=== PATIENT | female | born 1955 | race Caucasian/White ===

== ENCOUNTER 2019-12-21 18:48 | Emergency (ER) | payer MEDICARE, SELFPAY ==
[2019-12-21 18:51] VITALS: BP 143/73; PULSE 89; RESP 18; TEMP 37; O2SAT 96
--- NOTE | 2019-12-21 19:03 | DI.CT.S_ITS ---
PROCEDURE: CT HEAD/BRAIN WO CON INDICATIONS: fall, head injury on coumadin TECHNIQUE: Noncontrast 4.5 mm thick angled axial sections acquired from the foramen magnum to the vertex, with coronal and sagittal reformats. For radiation dose reduction, the following was used: automated exposure control, adjustment of mA and/or kV according to patient size. COMPARISON: [facility], CT, CT CERVICAL SPINE WO CON, 12/21/2019, 19:07. FINDINGS: Image quality: Excellent. CSF spaces: Basal cisterns are patent. No extra-axial fluid collections. The ventricles are symmetric in size and shape. Brain: No intracranial bleeds or masses. There is cerebral volume loss for age, with resultant ventricular and sulcal prominence. There are periventricular and deep white matter chronic small vessel ischemic changes. There is intracranial internal carotid artery atherosclerosis. Skull and face: Calvarium and visualized facial bones appear intact, without suspicious lesions. Sinuses: Visualized sinuses and mastoids are clear. IMPRESSION: 1. No acute intracranial findings. 2. Findings likely associated with chronic microvascular ischemic changes. Dictated by: Sunita Abdi M.D. on 12/21/2019 at 19:44 Approved by: Sunita Abdi M.D. on 12/21/2019 at 19:45
--- NOTE | 2019-12-21 19:03 | DI.CT.S_ITS ---
PROCEDURE: CT CERVICAL SPINE WO CON INDICATIONS: fall, head injury on coumadin TECHNIQUE: Noncontrast 3 mm thick sections acquired from the skull base to the T4 level. Sagittal and coronal reformats were then constructed. For radiation dose reduction, the following was used: automated exposure control, adjustment of mA and/or kV according to patient size. COMPARISON: None. FINDINGS: Image quality: Excellent. Bones: No fractures or dislocations. Severe degenerative changes are present within the cervical and upper thoracic spine including intervertebral disc space narrowing, subchondral cystic changes, and osteophytosis. Visualized superior ribs are intact. Soft tissues: Prevertebral soft tissues are normal in thickness. No paravertebral hematomas. No apical pneumothoraces. IMPRESSION: No acute cervical spine injury. Moderate to severe degenerative change. Dictated by: Sunita Abdi M.D. on 12/21/2019 at 19:42 Approved by: Sunita Abdi M.D. on 12/21/2019 at 19:44
--- NOTE | 2019-12-21 19:11 | DI.RAD.S_ITS ---
PROCEDURE: XR WRIST LT MIN 3V INDICATIONS: fall TECHNIQUE: 3 views of the wrist were acquired. COMPARISON: None. FINDINGS: Bones: There is a questionable minimally displaced fracture of the radial styloid. No other fracture or dislocation visualized. Soft tissues: No suspicious soft tissue calcifications. IMPRESSION: Questionable minimally displaced radial styloid fracture. Dictated by: Sunita Abdi M.D. on 12/21/2019 at 19:40 Approved by: Sunita Abdi M.D. on 12/21/2019 at 19:42
[2019-12-21 19:55] VITALS: BP 142/78; PULSE 81; RESP 16; O2SAT 97
[2019-12-21 20:09] LABS: Add Manual Diff / Slide Review NO; Basophils Absolute Auto 0 /uL (0-100); Basophils Percent Auto 0.2 % (0-2); Eosinophils Absolute Auto 200 /uL (0-450); Eosinophils Percent Auto 2.2 % (2-4); Hematocrit 42.4 % (36-46); Hemoglobin 14.1 g/dL (12.0-16.0); Lymphocytes Absolute Auto 3500 /uL (1100-4500); Lymphocytes Percent Auto 40.1 % (25-40); Mean Corpuscular HGB Conc 33.4 % (30-36); Mean Corpuscular Hemoglobin 30.3 PG (26-34); Mean Corpuscular Volume 90.7 fL (80-100); Monocytes Absolute Auto 700 /uL (0-900); Monocytes Percent Auto 7.8 % (3-14); Neutrophils Absolute Auto 4300 /uL (1500-7000); Neutrophils Percent Auto 49.7 % (50-75); Platelet Count 290 X10^3/uL (150-400); Red Blood Cell Count 4.68 X10^6/uL (4.0-5.2); Red Cell Distribution Width 12.7 % (11.6-14.8); White Blood Cell Count 8.6 X10^3/uL (4.5-11.0)
--- NOTE | 2019-12-21 20:09 | ED_ITS ---
HPI - General Adult General Chief complaint: Trauma Stated complaint: FALL LEFT WRIST INJURY Time Seen by Provider: 12/21/19 19:10 Source: patient Mode of arrival: Ambulatory Limitations: no limitations History of Present Illness HPI narrative: 64-year-old female on Coumadin for atrial fibrillation here for evaluations of injuries that she sustained when she fell yesterday after tripping over a crack in the sidewalk. She did fall forward. She did hit her head. There was no loss of consciousness. Has a bruise above her left eye. Has pain in her left wrist. Also is complaining of a headache. No other inju viry reported from the event. She has not tried anything for symptoms prior to arrival. Modified trauma called secondary to fall on anticoagulation with hitting her head. Related Data Allergies Allergy/AdvReac Type Severity Reaction Status Date / Time No Known Allergies Allergy Verified 12/21/19 20:21 Review of Systems Constitutional Constitutional: Denies fatigue, Denies fever(s), Denies frequent falls and Reports headache(s) Eyes Eyes: Denies change in vision ENT Ears, Nose, Mouth, and Throat: Denies vertigo, Denies dizziness, Denies dry mouth, Reports headache(s), Denies neck pain and Denies sore throat Cardiovascular Cardiovascular: Denies chest pain and Denies dyspnea Respiratory Respiratory: Denies dyspnea Gastrointestinal Gastrointestinal: Denies abdominal pain, Denies nausea and Denies vomiting Genitourinary Genitourinary: Denies dysuria Genitourinary: Denies dysuria Musculoskeletal Musculoskeletal: Denies neck pain Comments: Left wrist pain Integumentary/Breasts Comments: Bruising below the left eye Neurologic Neurologic: Denies behavioral changes, Denies confusion, Denies vertigo, Denies dizziness, Denies frequent falls and Reports headache(s) Psychiatric Psychiatric: Denies behavioral changes and Denies confusion Endocrine Endocrine: Denies fatigue and Denies flushing Hematologic/Lymphatic Comments: On Coumadin Allergic/Immunologic Allergic/Immunologic: Denies urticaria Patient History Medical History Atrial fibrillation (Acute) Social History Smoking Status: Current every day smoker Smoking Status: Current every day smoker Exam Initial Vital Signs Initial Vital Signs: Vital Signs Temperature 98.6 F 12/21/19 18:51 Pulse Rate 89 12/21/19 18:51 Respiratory Rate 18 12/21/19 18:51 Blood Pressure 143/73 H 12/21/19 18:51 Pulse Oximetry 96 12/21/19 18:51 Const General: cooperative and comfortable Limitations: mental status not altered HENMT Head: abrasion and contusion Nose: external nose normal Mouth: oral mucosae normal Teeth and gingiva: dentition normal Eyes EOM: EOM intact bilaterally Resp Effort & Inspection: normal respiratory effort Auscultation: clear to auscultation bilaterally Cardio Rate: regular rate Rhythm: regular rhythm Pulses: radial pulses present on the left GI Inspection: non-distended Palpation: soft Back/Spine/Pelvis Cervical Spine: No cervical spinal tenderness Thoracic/Lumbar Spine: No thoracic spinal tenderness and No lumbar spinal tenderness Skin Other: Superficial abrasion lateral aspect left eye along the orbital rim. Neuro General: patient alert, patient awake and patient oriented x3 Cranial Nerves: CN's II-XI intact bilaterally Cognition: normal cognition Speech: speech normal Motor: muscle tone normal throughout Sensory Exam: no sensory deficits noted Extrem General: normal to inspection and capillary refill normal Other: Left shoulder left elbow unremarkable. Patient tender to palpation of the distal radius. The rest of her left hand exam unremarkable Psych Appearance: grossly normal and well kempt Procedures Orthopedic Splinting/Casting Injury #1: Side: left Upper Extremity Injury Location: wrist Upper Extremity Immobilizer: thumb spica Post splinting neuro exam: no change Post splinting vascular exam: no change Placed by: Provider Course Orders Ordered: ED Orders 12/21/19 19:03 CT cervical spine wo con Stat CT head/brain wo con Stat 12/21/19 19:11 XR wrist LT min 3V Stat 12/21/19 20:00 Complete Blood Count AUTO DIFF Stat Comprehensive Metabolic Panel Stat Partial Thromboplastin Time Stat Prothrombin Time INR Stat Discontinued Medications Hydrocodone Bitart/Acetaminophen ([place] 5/325) 1 tab PO NOW ONE Stop: 12/21/19 20:18 Last Admin: 12/21/19 20:28 Dose: 1 tab Documented by: SONU Hydrocodone Bitart/Acetaminophen (Vicodin 5/325 Prepack) 1 bottle MISC SEEINSTR ONE Stop: 12/21/19 20:18 Last Admin: 12/21/19 20:28 Dose: 1 bottle Documented by: CSIEDLE Vital Signs Vital signs: Vital Signs - 8 hr 12/21/19 18:51 12/21/19 19:55 Temperature 98.6 F Pulse Rate 89 81 Respiratory Rate 18 16 Blood Pressure 143/73 H 142/78 H Pulse Oximetry 96 97 Medical Decision Making Lab Data Lab results reviewed: Yes I reviewed the patient's lab results. Result diagrams: 12/21/19 20:00 12/21/19 20:00 Labs: Lab Results 12/21/19 12/21/19 12/21/19 Range/Units 20:00 20:00 20:00 WBC 8.6 (4.5-11.0) X10^3/uL RBC 4.68 (4.0-5.2) X10^6/uL Hgb 14.1 (12.0-16.0) g/dL Hct 42.4 (36-46) % MCV 90.7 (80-100) fL MCH 30.3 (26-34) PG MCHC 33.4 (30-36) % RDW 12.7 (11.6-14.8) % Plt Count 290 (150-400) X10^3/uL Neut % (Auto) 49.7 L (50-75) % Lymph % (Auto) 40.1 H (25-40) % Grand % (Auto) 7.8 (3-14) % Eos % (Auto) 2.2 (2-4) % Baso % (Auto) 0.2 (0-2) % Neut # (Auto) 4300 (0902-6225) /uL Lymph # (Auto) 3500 (2238-8898) /uL Grand # (Auto) 700 (0-900) /uL Eos # (Auto) 200 (0-450) /uL Baso # (Auto) 0 (0-100) /uL PT 12.3 (10.1-12.7) SECONDS INR 1.1 (0.9-1.3) APTT 32 (26.4-36.2) SECONDS Sodium 137 (137-145) mmol/L Potassium 4.2 (3.4-5.1) mmol/L Chloride 101 (98-107) mmol/L Carbon Dioxide 29 (22-32) mmol/L BUN 28 H (7-17) mg/dL Creatinine 0.93 (0.52-1.04) mg/dL Estimated GFR > 60.0 (>60) mL/min BUN/Creatinine Ratio 30.1 H (6-22) Glucose 188 H (80-110) mg/dL Calcium 9.4 (8.4-10.2) mg/dL Total Bilirubin 0.4 (0.2-1.3) mg/dL AST 21 (14-36) IU/L ALT 10 (<35) IU/L Alkaline Phosphatase 118 (38-126) U/L Total Protein 7.2 (6.3-8.2) g/dL Albumin 3.9 (3.5-5.0) g/dL Globulin 3.3 (1.7-4.1) g/dL Albumin/Globulin Ratio 1.2 (1.0-2.8) Imaging Data CT - cervical spine: Radiologist's Impression: [address] [address] [address] Scan Report Signed Patient: Ning Flores R#: [id number] : [id number]:[id number] Age/Sex: 64 / FDate of Service: 12/21/19 Loc: ED Accession Number: [id number] Procedure: CT cervical spine wo con Ordering Provider: Cody Esqueda D.O. PROCEDURE: CT CERVICAL SPINE WO CON INDICATIONS: fall, head injury on coumadin TECHNIQUE: Noncontrast 3 mm thick sections acquired from the skull base to the T4 level. Sagittal and coronal reformats were then constructed. For radiation dose reduction, the following was used: automated exposure control, adjustment of mA and/or kV according to patient size. COMPARISON: None. FINDINGS: Image quality: Excellent. Bones: No fractures or dislocations. Severe degenerative changes are present within the cervical and upper thoracic spine including intervertebral disc space narrowing, subchondral cystic changes, and osteophytosis. Visualized superior ribs are intact. Soft tissues: Prevertebral soft tissues are normal in thickness. No paravertebral hematomas. No apical pneumothoraces. IMPRESSION: No acute cervical spine injury. Moderate to severe degenerative change. Dictated by: Sunita Abdi M.D. on 12/21/2019 at 19:42 Approved by: Sunita Abdi M.D. on 12/21/2019 at 19:44 CT scan - head: Radiologist's Impression: [address] [address] [address] Scan Report Signed Patient: Ning Flores R#: [id number] : [id number]:[id number] Age/Sex: 64 / FDate of Service: 12/21/19 Loc: ED Accession Number: [id number] Procedure: CT head/brain wo con Ordering Provider: Cody Esqueda D.O. PROCEDURE: CT HEAD/BRAIN WO CON INDICATIONS: fall, head injury on coumadin TECHNIQUE: Noncontrast 4.5 mm thick angled axial sections acquired from the foramen magnum to the vertex, with coronal and sagittal reformats. For radiation dose reduction, the following was used: automated exposure control, adjustment of mA and/or kV according to patient size. COMPARISON: [facility], CT, CT CERVICAL SPINE WO CON, 12/21/2019, 19:07. FINDINGS: Image quality: Excellent. CSF spaces: Basal cisterns are patent. No extra-axial fluid collections. The ventricles are symmetric in size and shape. Brain: No intracranial bleeds or masses. There is cerebral volume loss for age, with resultant ventricular and sulcal prominence. There are periventricular and deep white matter chronic small vessel ischemic changes. There is intracranial internal carotid artery atherosclerosis. Skull and face: Calvarium and visualized facial bones appear intact, without suspicious lesions. Sinuses: Visualized sinuses and mastoids are clear. IMPRESSION: 1. No acute intracranial findings. 2. Findings likely associated with chronic microvascular ischemic changes. Dictated by: Sunita Abdi M.D. on 12/21/2019 at 19:44 Approved by: Sunita Abdi M.D. on 12/21/2019 at 19:45 Extremity x-ray #1: Radiologist's Impression: [address] [address] XRay Report Signed Patient: Ning Flores JMR#: [id number] : [id number]:[id number] Age/Sex: 64 / FDate of Service: 12/21/19 Loc: ED Accession Number: [id number] Procedure: XR wrist LT min 3V Ordering Provider: Cody Esqueda D.O. PROCEDURE: XR WRIST LT MIN 3V INDICATIONS: fall TECHNIQUE: 3 views of the wrist were acquired. COMPARISON: None. FINDINGS: Bones: There is a questionable minimally displaced fracture of the radial styloid. No other fracture or dislocation visualized. Soft tissues: No suspicious soft tissue calcifications. IMPRESSION: Questionable minimally displaced radial styloid fracture. Dictated by: Sunita Abdi M.D. on 12/21/2019 at 19:40 Approved by: Sunita Abdi M.D. on 12/21/2019 at 19:42 MDM Narrative Medical decision making narrative: CT scan head neck unremarkable. The abrasion above the left eye needs no intervention. She has no step-offs along the orbital rim on the left. Her extraocular muscles are intact. No nasal fracture. X-rays do show a left-sided distal radius fracture. She was placed in a thumb spica splint as described above. She was given care instructions and return precautions and follow-up instructions with regard to this. She expressed understanding and agreement. Discharge Plan Departure Patient Disposition: Home Clinical Impression: Abrasion Fall Qualifiers: Encounter type: initial encounter Qualified Code(s): W19.XXXA - Unspecified fall, initial encounter Closed fracture of radial styloid Qualifiers: Encounter type: initial encounter Fracture alignment: nondisplaced Laterality: left Qualified Code(s): S52.515A - Nondisplaced fracture of left radial styloid process, initial encounter for closed fracture Discharge Date/Time: 12/21/19 20:45 Instructions: How to Take Care of Your Splint Activity Restrictions/Additional Instructions: The splint needs to stay on it stay clean and stay dry. Recommend tomorrow you contact your primary provider for follow-up. You can also contact the [facility] at [phone]. Return to the emergency department for any new or worsening symptoms Referrals: Papa Valentine MD [Primary Care Provider] -
[2019-12-21 20:21] LABS: INR 1.1 (0.9-1.3); Prothrombin Time 12.3 SECONDS (10.1-12.7)
[2019-12-21 20:23] LABS: PTT Partial Thromboplastin Tim 32 SECONDS (26.4-36.2)
[2019-12-21 20:28] LABS: Alanine Aminotransferase 10 IU/L (<35); Albumin 3.9 g/dL (3.5-5.0); Albumin Globulin Ratio 1.2 (1.0-2.8); Alkaline Phosphatase 118 U/L (38-126); Aspartate Aminotransferase 21 IU/L (14-36); BUN Creatinine Ratio 30.1 (6-22); Bilirubin Total 0.4 mg/dL (0.2-1.3); Blood Urea Nitrogen 28 mg/dL (7-17); Calcium 9.4 mg/dL (8.4-10.2); Carbon Dioxide 29 mmol/L (22-32); Chloride 101 mmol/L (98-107); Estimated Glomerular Filt Rate > 60.0 mL/min (>60); Globulin 3.3 g/dL (1.7-4.1); Glucose 188 mg/dL (80-110); HEMOLYSIS 17 (0-50); Potassium 4.2 mmol/L (3.4-5.1); Sodium 137 mmol/L (137-145); Total Protein 7.2 g/dL (6.3-8.2)
[2019-12-21] MEDS: HYDROCODONE/ACET 5/325 PREPACK 1 BOTTLE MISC (20:28)
[2019-12-21] MEDS: HYDROCODONE/ACET 5/325 TABLET 1 TAB PO (20:28)
== END 2019-12-21 20:45 | disposition home or self-care (01) ==
PROVIDERS: Emergency Provider Emergency Medicine; PCP Otolaryngology Facial Plastic Surgery
DX: S52.515A Nondisplaced fracture of left radial styloid process, initial encounter for closed fracture (principal); S00.212A Abrasion of left eyelid and periocular area, initial encounter; S09.90XA Unspecified injury of head, initial encounter; I48.91 Unspecified atrial fibrillation; Z79.01 Long term (current) use of anticoagulants; W19.XXXA Unspecified fall, initial encounter
CPT/HCPCS: 29125; 36415; 70450; 72125; 73110; 80053; 85025; 85610; 85730; 99284; 99285

== ENCOUNTER → 2020-02-15 09:31 | Outpatient (CLI) | payer MEDICARE, SELFPAY ==
--- NOTE | 2020-02-15 | DI.MRI.S_ITS ---
PROCEDURE: MR WRIST LT WO CON INDICATIONS: Nondisplaced fracture of left radial styloid TECHNIQUE: Noncontrast coronal proton density fast spin echo and T2 fast spin echo with fat saturation; coronal 3-D gradient echo, axial T1 spin echo and T2 fast spin echo with fat saturation, sagittal T1 spin echo through the wrist. COMPARISON: [facility], CR, XR WRIST LT MIN 3V, 12/21/2019, 19:06. [facility], CR, XR WRIST 1 OR 2 VIEWS LEFT, 02/11/2020, 16:42. FINDINGS: Image quality: Excellent. Bones and cartilage: The carpal bones are normally aligned. Marrow edema involving distal radius extending to radial styloid is seen with 90 nondisplaced fracture through base of radial styloid. There is also mild edema involving adjacent proximal scaphoid and lunate without discrete fracture line. Overlying soft tissue edema is also seen. 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 Carpal ligaments: The scapholunate and lunotriquetral ligaments appear intact. In the absence of intra-articular contrast, the extrinsic carpal ligaments are not well identified. On sagittal images, the pisohamate ligament appears intact. Triangular fibrocartilage complex: The triangular fibrocartilage appears intact. The adjacent meniscal homolog appears normal in the absence of intra-articular contrast. The extensor carpi ulnaris tendon is normal in location and morphology. Tendons and soft tissues: Thickened extensor pollicis brevis and abductor pollicis longus tendons are noted at the level of radial styloid. The carpal tunnel structures appear normal, including the median nerve. The ulnar nerve appears normal within Guyon's canal. Rest of the extensor tendon compartments demonstrate normal morphology, without pathologic tendon sheath fluid. No soft tissue ganglion cysts. IMPRESSION: 1. Subacute appearing nondisplaced radial styloid base fracture with marrow edema. Suggestion of mild contusion in the adjacent proximal scaphoid and lunate. No other fracture or dislocation. 2. Osteoarthritic changes throughout wrist joints particularly along radial aspect of wrist as above. 3. Tendinosis involving extensor pollicis brevis and abductor pollicis longus tendons at the level of radial styloid. Rest of the extensor and flexor tendons are intact. 4. Intrinsic and extrinsic wrist ligaments are intact. Triangular fibrocartilage complex is intact. Dictated by: Pato Osorio M.D. on 02/15/2020 at 11:31 Approved by: Pato Osorio M.D. on 02/15/2020 at 11:41
== END ==
PROVIDERS: Referring Provider Physician Assistant Surgical; Visit Provider Physician Assistant Surgical
DX: S52.515D Nondisplaced fracture of left radial styloid process, subsequent encounter for closed fracture with routine healing (principal); M19.032 Primary osteoarthritis, left wrist; X58.XXXD Exposure to other specified factors, subsequent encounter
CPT/HCPCS: 73221

== ENCOUNTER 2021-07-30 02:28 | Emergency (ER) | payer MEDICARE, SELFPAY ==
[2021-07-30 02:34] VITALS: BP 190/87; PULSE 98; RESP 16; TEMP 36.6; O2SAT 99
--- NOTE | 2021-07-30 02:39 | DI.RAD.S_ITS ---
PROCEDURE: XR FINGER RT MIN 2V INDICATIONS: pain, swelling, recent surgery for foreign body TECHNIQUE: AP hand, 2 views of the right 2nd finger(s) acquired. COMPARISON: None. FINDINGS: Bones: No fractures or dislocations. No suspicious bony lesions. Soft tissues: Tiny punctate soft tissue calcifications noted along the lateral margin of the head of the 2nd middle phalange. No soft tissue gas. IMPRESSION: No fracture. No acute osseous lesion. If symptoms and/or clinical suspicion for pathology persists, further assessment with repeat radiographs (7-10 days) or advanced imaging (e.g. CT, MRI or bone scan) should be considered. Dictated by: Inez Ta MD, PhD on 07/30/2021 at 7:39 Approved by: Inez Ta MD, PhD on 07/30/2021 at 7:41
--- NOTE | 2021-07-30 03:00 | ED_ITS ---
HPI - Extremity Problem General Chief complaint: Extremity Problem,Nontraumatic Stated complaint: Thinks RT finger might be infected had surgery Time Seen by Provider: 07/30/21 02:30 Source: patient Mode of arrival: Ambulatory History of Present Illness HPI Narrative: 65-year-old female smoker with history of diabetes presents with a chief complaint of some increasing swelling and decreased range of motion of her right index finger over the past few days. She denies any fever or chills nor nausea or vomiting. She states that 6 weeks ago she was cleaning out a drawer and had a needle from an insulin syringe steak in her finger. She presented to an outside facility in required orthopedic intervention to have the needle removed. She had been on Keflex for 7 days in the aftermath and was doing fine and well until recently. She denies any red streaks up her hand or wrist, she has no nausea or vomiting and is otherwise largely at her baseline Related Data Previous Rx's Medication Instructions Recorded triamcinolone acetonide 0.1 % 1 applic TOPICAL BID #30 g 07/20/20 topical cream doxycycline hyclate 100 mg tablet 100 mg PO BID #20 tab 07/30/21 Allergies Allergy/AdvReac Type Severity Reaction Status Date / Time lisinopril Allergy Verified 07/20/20 16:40 No Known Allergies Allergy Verified 12/21/19 20:21 Review of Systems Review of Systems Narrative: GENERAL: Denies chills, fatigue, malaise, fever, sweats. HEENT: Denies sinus pain, ear pain, sore throat, difficulty swallowing, dizziness. RESPIRATORY: Denies dyspnea, cough, wheezing, hemoptysis, sputum. CARDIOVASCULAR: Denies chest pain, palpitations, orthopnea, edema, GASTROINTESTINAL: Denies nausea, vomiting, abdominal pain, diarrhea, constipation, melena. : Denies dysuria, frequency, incontinence, hematuria, urinary retention. MUSCULOSKELETAL: See HPI SKIN: See HPI NEUROLOGIC: Denies weakness, headache, numbness, change in speech, confusion, seizures, incoordination. PSYCHIATRIC: No concerning psychosocial issues. 12 point review of systems is negative except for those stated above Patient History Medical History (Updated 07/30/21 @ 03:24 by Suleiman Covarrubias DO) Atrial fibrillation Social History Smoking Status: Current every day smoker Smoking Status: Current every day smoker Exam Narrative Exam Narrative: GEN: AOx3 and in mild distress EYES: Pupils are equal, round, and reactive to light and accommodation. Extraoccular muscles are intact bilaterally. There is no subconjunctival hemorrhage or exudate. CHEST: Lungs are clear to auscultation bilaterally and free of wheezes, rales, or rhonchi. Heart rate is regular rhythm, there are no murmurs, clicks, rubs, or gallops. There is no chest wall tenderness. ABD: Abdomen is soft and nontender. There is no guarding or rebound. Bowel sounds are normal in all 4 quadrants. There is no mass or organomegaly. EXT: Right index finger with mild swelling, no drainage, no tenderness along flexor tendon, no pain on palpation of the palmar surface. Cap refill and sensation intact. No drainage, no fusiform swelling, no palpable foreign body. She has with some limited range of motion and cannot make a fist but is able to flex through a large range of motion. SKIN: Warm, pink, and dry. No erythema or rash Initial Vital Signs Initial Vital Signs: Vital Signs Temperature 97.8 F 07/30/21 02:34 Pulse Rate 98 H 07/30/21 02:34 Respiratory Rate 16 07/30/21 02:34 Blood Pressure 190/87 H 07/30/21 02:34 Pulse Oximetry 99 07/30/21 02:34 Course Orders Ordered: Discontinued Medications Doxycycline Hyclate (Doxycycline Hyclate 100 Mg Tablet) 100 mg PO NOW ONE Stop: 07/30/21 02:40 Last Admin: 07/30/21 03:02 Dose: 100 mg Documented by: [email or web address] Vital Signs Vital signs: Vital Signs - 8 hr 07/30/21 02:34 Temperature 97.8 F Pulse Rate 98 H Respiratory Rate 16 Blood Pressure 190/87 H Pulse Oximetry 99 MDM - Extremity (Nontraumatic) Lab Data Labs: Point of Care Testing Glucose POC 266 Urine Dip Bedside Urine Ketone - Negative MDM Narrative Medical decision making narrative: 65-year-old female with some swelling of index finger and minimal pain 6 weeks after a surgery for retained foreign body. Her exam is reassuring and she has no evidence of flexor tenosynovitis, deep space infection, fell and. Most likely this is a superficial, early cellulitis and oral antibiotics are ap propriate at this time. X-ray shows no retained foreign body. Patient has no systemic findings and is otherwise well and free of complaint. She has been given extensive return precautions and questions have been answered to her apparent satisfaction Discharge Plan Departure Patient Disposition: Home Clinical Impression: Cellulitis of index finger Instructions: DI for Cellulitis -- Adult Activity Restrictions/Additional Instructions: *You have been diagnosed with [right index finger cellulitis. There is no evidence of retained metallic foreign body or an infection that would require hospitalization or a repeat trip to the operating room. *What to do: *Please continue to take your regular medications as directed. [ x] New medication prescriptions sent to your pharmacy: [ [facility]] [ ] New medication written as a paper prescription [ ] No new medications given *Please follow up with your orthopedist in 2-3 days, call for an appointment. Let them know you were seen in the Emergency Department and that we ask that you be seen in follow up. Return to Emergency Department if you should have any new, worsening or concerning symptoms, such as [fever greater than 101 F, shaking chills, worsening pain, persistent vomiting or other bothersome symptoms] Prescriptions: New doxycycline hyclate 100 mg tablet 100 mg PO BID Qty: 20 0RF No Action triamcinolone acetonide 0.1 % cream 1 applic topical BID Qty: 30 0RF Referrals: Miscellaneous,Doctor, [Primary Care Provider] -
[2021-07-30] MEDS: DOXYCYCLINE HYCLATE 100 MG TABLET PO (03:02)
== END 2021-07-30 03:32 | disposition home or self-care (01) ==
PROVIDERS: Emergency Provider Emergency Medicine
DX: L03.011 Cellulitis of right finger (principal)
CPT/HCPCS: 73140; 81003; 82962; 99283

== ENCOUNTER 2023-01-10 17:58 | Emergency (ER) | payer MEDICARE, SELFPAY ==
[2023-01-10 18:05] VITALS: BP 166/72; PULSE 76; RESP 16; TEMP 36.4; O2SAT 97; BMI 31.6
--- NOTE | 2023-01-10 18:18 | PC.NURSE ---
Pt's caregiver states they are taking her to [facility]. Reviewed that she has been there for 20 min only. He says they do not want to wait.
[2023-01-10 18:29] LABS: Strep Grp A by PCR Rapid Negative (Negative)
== END 2023-01-10 18:21 | disposition left against medical advice (07) ==
PROVIDERS: Emergency Provider Emergency Medicine
DX: J02.9 Acute pharyngitis, unspecified (principal)
CPT/HCPCS: 87651; 99281